=== PATIENT | female | born 1960 | race Caucasian/White ===

== ENCOUNTER 2017-10-03 10:46 | Emergency (ER) | payer MEDICAID ==
--- NOTE | 2017-10-03 12:53 | EDPHY ---
H & P Time Seen by Provider: 10/03/17 11:57 HPI/ROS: CHIEF COMPLAINT: Left wrist pain, right knee pain HISTORY OF PRESENT ILLNESS: 57-year-old female presents to the emergency department by private vehicle after she tripped and fell yesterday afternoon around 3:00 p.m. Injuring her left wrist in her right knee. She thinks that she hit her head although she did not lose consciousness. She complains of pain in her left wrist especially with movement. She has had numerous surgeries to the right knee. Denies headache. No visual symptoms. Denies chest pain or difficulty breathing. Denies abdominal pain. Denies paresthesias in her upper or lower extremities. Denies pain in her right ankle or right hip. Denies pain in her left elbow or shoulder. Denies any symptoms in the right upper extremity or left lower extremity. REVIEW OF SYSTEMS: Constitutional: No fever, no chills. Eyes: No double or blurry vision. ENT: No sore throat. Respiratory: No cough, no shortness of breath. Cardiac: No chest pain. Gastrointestinal: No abdominal pain, vomiting or diarrhea. Genitourinary: No dysuria. Musculoskeletal: No neck or back pain. Skin: No rashes. Neurological: No headache. Past Medical/Surgical History: Orthopedic surgeries, Sjogren's syndrome, hypothyroidism Social History: Single and lives in [place] Smoking Status: Never smoked Physical Exam: General Appearance: Alert, no distress. No visible signs of trauma to her head. She is mentating normally and answering questions appropriately. Eyes: Pupils equal and round. Extraocular motions are all intact. ENT: Mouth: Mucous membranes moist. Respiratory: No wheezing, rhonchi, or rales, lungs are clear to auscultation. Cardiovascular: Regular rate and rhythm. Gastrointestinal: Abdomen is soft and nontender, no masses, no rebound or guarding, bowel sounds normal. Neurological: Alert and oriented x 3, cranial nerves II through XII grossly intact Skin: Warm and dry, no rashes. Musculoskeletal: Nontender to palpate along the cervical, thoracic or lumbar spine. Neck is supple. Extremities: Pain with palpation over the distal radius. No palpable crepitus or other bony abnormality. Limited supination secondary to pain. Full extension of the left elbow without difficulty. Full range of motion of the right knee. No obvious deformity noted to the knee. No effusion. Very superficial abrasion to the anterior aspect of the right knee. Full range of motion of the right upper extremity and left lower extremity. Psychiatric: Patient is oriented X 3, there is no agitation. Constitutional: Initial Vital Signs Temperature (C) 36.7 C 10/03/17 10:53 Heart Rate 103 H 10/03/17 10:53 Respiratory Rate 18 10/03/17 10:53 Blood Pressure 144/87 H 10/03/17 10:53 O2 Sat (%) 98 10/03/17 10:53 O2 Delivery Mode Room Air Allergies/Adverse Reactions: No Known Allergies Allergy (Verified 10/03/17 10:51) Home Medications: Medication Instructions Recorded Bupropion HCl 09/18/14 Cyclobenzaprine [Flexeril] 10 mg PO TID PRN #15 tab 09/18/14 Ibuprofen [Motrin (*)] 600 mg PO Q6 PRN #30 tab 12/10/14 Lorazepam 03/30/15 Estradiol 09/17/15 Levothyroxine 09/17/15 Polymyxin B Sulf/Trimethoprim 10 ml OP QID #1 btl 09/17/15 [Polymyxin B-Tmp Eye Drops] traZODONE 09/17/15 Hydroxychloroquine Sulfate 10/03/17 Medical Decision Making - Diagnostics Imaging Results: Imaging Impressions Knee X-Ray 10/03/17 10:56 Impression: Tricompartment degenerative change right knee, more predominant in the patellofemoral compartment. Ossification medial to the patella, which could be heterotopic ossification or a loose body. No definite acute fracture. Wrist X-Ray 10/03/17 10:56 Impression: Negative. No acute fracture. Imaging: I viewed and interpreted images myself Procedures: Patient was placed in a right straight leg knee immobilizer and in a left Velcro thumb spica splint and examined post application in good placement with normal [employer]. ED Course/Re-evaluation: 57-year-old female presents to the emergency department with orthopedic injuries x-rays reveal no obvious fractures. The patient however does have pain with palpation in her left wrist as well as the anatomic snuffbox. She was placed in a Velcro thumb spica splint in knee immobilizer and given orthopedic referral. She has seen Dr. Valenzuela in the past as well. Differential Diagnosis: Including but not limited to fracture, dislocation, contusion, sprain Departure - Departure Disposition: Home, Routine, Self-Care Clinical Impression: Left wrist sprain Qualifiers: Encounter type: initial encounter Qualified Code(s): S63.502A - Unspecified sprain of left wrist, initial encounter Contusion of right knee Qualifiers: Encounter type: initial encounter Qualified Code(s): S80.01XA - Contusion of right knee, initial encounter Knee abrasion Qualifiers: Encounter type: initial encounter Laterality: right Qualified Code(s): S80.211A - Abrasion, right knee, initial encounter Condition: Good Instructions: Contusion in Adults (ED), Knee Pain (ED), Wrist Sprain (ED) Additional Instructions: Splint for comfort and support. Ibuprofen 600 mg every 8 hr as needed for pain. Follow up with orthopedic surgeon next week to recheck. Ice and elevate to help relieve swelling. Referrals: Mauricio Padilla MD [Medical Doctor] - 5-7 days, call for appt. (Orthopedic surgeon on-call) Jeremiah Valenzuela MD [Medical Doctor] - As per Instructions
[2017-10-03 13:04] VITALS: BP 134/83
== END 2017-10-03 13:10 | disposition home or self-care (01) ==
DX: S63.502A Unspecified sprain of left wrist, initial encounter (principal); S80.01XA Contusion of right knee, initial encounter; S80.211A Abrasion, right knee, initial encounter; W01.190A Fall on same level from slipping, tripping and stumbling with subsequent striking against furniture, initial encounter
CPT/HCPCS: L1830; L3807